=== PATIENT | male | born 1980 | race Caucasian/White ===

== ENCOUNTER 2021-04-15 03:55 | Emergency (ER) | payer SELFPAY ==
[~2021-04-15] VITALS: Ht 172.7 cm; Wt 72.6 kg
[2021-04-15 04:09] VITALS: BP 145/95
[2021-04-15] MEDS ORDERED: CEPH500C2 PO (04:23)
[2021-04-15] MEDS ORDERED: CEPHALEXIN MONOHYDRATE 500 MG CAPSULE PO ONE (04:30)
== END 2021-04-15 04:33 | disposition home or self-care (01) ==
LOC: ER 04:05
DX: L03.314 Cellulitis of groin (principal); L73.1 Pseudofolliculitis barbae